=== PATIENT | male | born 2000 | race Caucasian/White ===

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

== ENCOUNTER 2021-09-19 12:19 | Emergency (ER) | payer BC, SELFPAY ==
[2021-09-19 12:29] VITALS: BP 152/80; PULSE 80; RESP 16; TEMP 37.2; O2SAT 100
--- NOTE | 2021-09-19 12:42 | ED.URI ---
HPI - URI/Sore Throat General Chief Complaint: Upper Respiratory Infection Stated Complaint: Sore Throat Time Seen by Provider: 09/19/21 12:42 Source: patient Mode of arrival: ambulatory Limitations: no limitations History of Present Illness HPI Narrative: 20 yo M presents with c/o sore and swollen throat, fatigue for approx. 2 wks. has had nausea for approx. 3 days. Was seen at ER 4 or 5 days ago and had neg covid test. Reports that he was not tested for strep. Deneis cough, congestion, headaches, fever. All systems reviewed and negative except as noted above. Related Data Allergies Allergy/AdvReac Type Severity Reaction Status Date / Time No Known Allergies Allergy Verified 09/19/21 12:22 Review of Systems Review of Systems: CONSTITUTIONAL: Denies fever, chills, or sweats. Reports fatigue. EYES: Denies visual changes, redness, or discharge. ENT: Denies rhinorrhea, congestion. Reports sore throat. CARDIOVASCULAR: Denies chest pain, palpitations, or edema. RESPIRATORY: Denies cough or dyspnea. GASTROINTESTINAL: Denies abdominal pain, nausea, vomiting, or diarrhea. GENITOURINARY: Denies dysuria or hematuria. SKIN: Denies rash or itching. MUSCULOSKELETAL: Denies back pain, joint pain, or myalgia. NEUROLOGIC: Denies headache, numbness, or weakness. PSYCHIATRIC: Denies anxiety or depression. All other systems reviewed are negative, except as documented in HPI. PMFSH Social History Social History Gender identity (if verbalized by the patient): Male Comments At time of signature, agree with nursing past medical, surgical, social and family history. There is no relevant family history pertinent to the presenting complaint. Exam Narrative: GENERAL: This is a well-nourished, well-developed patient, in no apparent distress. HEAD: normocephalic, atraumatic. EYES: PERRL. Sclera clear/white. Vision is grossly intact. EARS: External ears normal, auditory canals clear and without drainage, TMs normal without perforation. Hearing grossly intact. NOSE: External nose normal with no obvious nasal discharge, nares without redness, no rhinorrhea. THROAT: Mucous membranes moist, erythema and swelling to posterior pharynx. Erythema, tonsils 1+ bilaterally. No exudates. NECK: Neck supple, non-tender without lymphadenopathy, masses or thyromegaly. CARDIOVASCULAR: Regular rate and rhythm without murmurs, gallops, or rubs. RESPIRATORY: Clear to auscultation. Breath sounds equal bilaterally. No wheezes, rales, or rhonchi. SKIN: warm, Dry, intact with no suspicious lesions or rash, good texture and turgor. NEURO: awake, alert, and oriented to person, place and time. There were no obvious focal neurologic abnormalities. EXTREMITIES: No joint tenderness, effusion, or edema noted. Course Course Level of Care: Express Care Visit Vital Signs Vital signs: Vital Signs Temperature 37.2 C 09/19/21 12:29 Pulse Rate 80 09/19/21 12:29 Respiratory Rate 16 09/19/21 12:29 Blood Pressure 152/80 H 09/19/21 12:29 Pulse Oximetry 100 09/19/21 12:29 Oxygen Delivery Room Air 09/19/21 12:29 Temperature 37.2 C 09/19/21 12:29 Pulse Rate 80 09/19/21 12:29 Respiratory Rate 16 09/19/21 12:29 Blood Pressure 152/80 H 09/19/21 12:29 Pulse Oximetry 100 09/19/21 12:29 Oxygen Delivery Room Air 09/19/21 12:29 Reviewed MDM - URI/Sore Throat MDM Narrative Medical decision making narrative: Negative strep and mono. We will treat patient with antibiotic due to exam findings and symptom duration. Patient is aware of diagnosis, understands and agrees to treatment plan. Anticipatory guidance given. Patient agrees to follow-up as directed and is aware of reasons to seek care at the emergency department. Portions of this record may have been created with voice recognition software Differential Diagnosis Differential diagnosis: Likely upper respiratory infection, sinusitis, viral infection and pharyngitis Lab Data Labs:
== END 2021-09-19 13:17 | disposition home or self-care (01) ==
PROVIDERS: Emergency Provider Nurse Practitioner Family
DX: J02.9 Acute pharyngitis, unspecified (principal)
CPT/HCPCS: 36416; 86308; 87081; 87880; 99213; G0463

== ENCOUNTER 2021-11-06 15:36 | Emergency (ER) | payer BC, SELFPAY ==
--- NOTE | 2021-11-06 15:37 | ED.URI ---
HPI - URI/Sore Throat General Chief Complaint: Upper Respiratory Infection Stated Complaint: Sore Throat Time Seen by Provider: 11/06/21 15:58 Source: patient and RN notes reviewed Mode of arrival: ambulatory Limitations: no limitations History of Present Illness HPI Narrative: 21-year-old male presents with concern for sore throat, fever, cold chills that started 3 to 4 days ago. He reports history of strep throat. Reports he had tonsillitis 3 months ago for which he took amoxicillin. He denies nasal congestion, rhinorrhea, difficulty swallowing. Reports painful swallowing. He denies known sick exposures, reports he works at [employer] with public. MD elicited complaint: sore throat Related Data Allergies Allergy/AdvReac Type Severity Reaction Status Date / Time No Known Allergies Allergy Verified 09/19/21 12:22 Review of Systems Review of Systems: CONSTITUTIONAL: Reports malaise, chills, fever. EYES: Denies visual changes, redness, or discharge. ENT: Denies rhinorrhea, congestion, sinus pain, otalgia. Reports sore throat. CARDIOVASCULAR: Denies chest pain, palpitations, or edema. RESPIRATORY: Denies cough. Denies dyspnea. GASTROINTESTINAL: Denies abdominal pain, nausea, vomiting, diarrhea SKIN: Denies rash or itching. MUSCULOSKELETAL: Reports myalgia. NEUROLOGIC: Denies headache. All systems reviewed & are unremarkable except as noted in HPI and below PMFSH Social History Social History Gender identity (if verbalized by the patient): Male Comments At time of signature, agree with nursing past medical, surgical, social and family history. There is no relevant family history pertinent to the presenting complaint Exam Narrative: GENERAL: Well-appearing, well-nourished, and in no acute distress. HEAD: Normocephalic EYES: PERRLA, conjunctivae clear ENT: Nares clear. Mucous membranes moist. TM pearly vega with sharp light reflex bilaterally; no tragal tenderness. Oropharynx erythematous without lesions. Tonsils enlarged and without exudate, no drooling, no hoarseness, no trismus, uvula midline. NECK: Supple. No lymphadenopathy CHEST: Clear to auscultation, breath sounds equal. No wheezing, rhonchi, rales, or stridor. No respiratory distress, speaks in full sentences. HEART: Regular rate and rhythm. No murmur heard. SKIN: Warm, dry, no rash. NEURO: Alert and oriented x3. PSYCH: Normal mood and affect Course Course Emergency Course: Patient is aware of diagnosis, understands and agrees to treatment plan. Anticipatory guidance given. Patient agrees to follow-up as directed and is aware of reasons to seek care at the emergency department. Portions of this record may have been created with voice recognition software Level of Care: Express Care Visit Vital Signs Vital signs: Reviewed. MDM - URI/Sore Throat MDM Narrative Medical decision making narrative: Differential diagnosis considered: Sousa virus, strep pharyngitis, allergic rhinitis, upper respiratory tract infection, sinusitis, rhinosinusitis, nasopharyngitis. viral pharyngitis, otitis media, otitis externa, pneumonia, bronchitis, viral cough syndrome, viral syndrome, and influenza. Exam findings show no acute concerns or changes; patient is non-toxic appearing and is in no distress. Patient is appropriate for outpatient treatment and follow-up. Lab Data Attestation: I reviewed the patient's lab results. Critical Care Time Critical Care Time Critical Care Time: No Discharge Plan Discharge Clinical Impression: Acute streptococcal pharyngitis Patient Disposition: Home, Self-Care Condition: Stable Instructions: Antibiotic Form, Strep Throat (ED) Additional Instructions: -Take the medication as prescribed. Throw away the toothbrush after 24hours of antibiotic. -Eat and drink things that are easy to swallow, like tea or soup, or popsicles to suck on. -Oral rinses such as: Salt water gargles and/or may use topical anesthetic (eg. Chloraseptic spr
[2021-11-06 15:41] VITALS: BP 147/76; PULSE 103; RESP 16; TEMP 37.1; O2SAT 100
== END 2021-11-06 16:11 | disposition home or self-care (01) ==
PROVIDERS: Emergency Provider Nurse Practitioner
DX: J02.0 Streptococcal pharyngitis (principal)
CPT/HCPCS: 87880; 99213; G0463

== ENCOUNTER 2022-02-15 07:14 | Emergency (ER) | payer BC, SELFPAY ==
[2022-02-15 07:21] VITALS: BP 159/86; PULSE 105; RESP 16; TEMP 37.2; O2SAT 99
[2022-02-15 07:40] LABS: Basophils Percent Auto 0.4 % (0.2-1.2); Eosinophils Absolute Auto 0.1 K/mm3 (0-0.3); Eosinophils Percent Auto 0.6 % (0-4.4); Hematocrit 50.6 % (42.0-52.0); Hemoglobin 17.5 g/dL (14.0-18.0); Immature Granulocyte Absolute 0.01 K/mm3 (0.00-0.031); Immature Granulocyte Percent A 0.1 % (0-0.5); Lymphocytes Absolute Auto 2.53 K/mm3 (0.9-3.2); Lymphocytes Percent Auto 27.3 % (18.3-44.2); Mean Corpuscular HGB Conc 34.6 g/dl (32-36); Mean Corpuscular Hemoglobin 29.3 pg (26-34); Mean Corpuscular Volume 84.6 fl (80-100); Mean Platelet Volume 10.1 fl (7.4-10.4); Monocytes Absolute Auto 0.6 K/mm3 (0.1-0.6); Neutrophils Absolute Auto 6.1 K/mm3 (1.3-6.7); Neutrophils Percent Auto 65.6 % (45.5-73.1); Platelet Count Result 347 k/mm3 (150-375); Red Blood Count 5.98 M/mm3 (4.6-6.20); Red Cell Distribution Width 12.6 % (11.5-14.5); White Blood Count 9.3 K/mm3 (4.5-10.0)
[2022-02-15 08:15] LABS: Appearance Urine Clear (Clear); Bilirubin Urine Negative (Negative); Blood Urine Negative (Negative); Color Urine Yellow (Yellow); Glucose Urine UA Negative (Negative); Ketones Urine 2+ mg/dL (Negative); Leukocyte Esterase Ur Negative LEU/UL (Negative); Nitrate Urine Negative (Negative); Protein Urine Negative (Negative); Specific Grav Ur 1.025 (1.001-1.035); Urobilinogen Urine 0.2 mg/dL (<2.0)
[2022-02-15 08:22] LABS: Mucus Urine Rare /lpf; RBC Urine 0-2 /hpf (0-2); WBC Urine 0-3 /hpf
[2022-02-15 08:24] LABS: Add Urine Microscopic? YES
[2022-02-15 08:28] LABS: Alanine Aminotransferase 36 U/L (6-50); Albumin Level 5.3 g/dL (3.5-5.1); Alkaline Phosphatase 71 U/L (38-126); Anion Gap 11 mmol/L (8-16); Aspartate Amino Transferase 40 U/L (17-59); Bilirubin,Total 0.7 mg/dL (0.2-1.3); Blood Urea Nitrogen 14 mg/dL (9-20); Calcium 9.9 mg/dL (8.4-10.2); Carbon Dioxide 28 mmol/L (22-30); Chloride 101 mmol/L (98-107); Estimated CRCL calculation 188 ml/min; Estimated Glomerular Filt Rate > 60; Glucose 121 mg/dL (65-110); Lipase 49 U/L (23-300); Potassium 3.8 mmol/L (3.4-5.0); Sodium 140 mmol/L (137-145)
--- NOTE | 2022-02-15 08:55 | ED.GENADULT ---
HPI - General Adult General Chief complaint: Abdominal Pain Stated complaint: left side abdominal pain x 4 days Time Seen by Provider: 02/15/22 07:26 History of Present Illness HPI narrative: 21-year-old male presents for evaluation of sharp, intermittent, left side pain x1 week. He has been taking ibuprofen 400 mg every now and then to treat the pain. No falls or trauma. No fever, bowel or bladder changes. He is otherwise healthy. No difficulty breathing or chest pain. Related Data Allergies Allergy/AdvReac Type Severity Reaction Status Date / Time No Known Allergies Allergy Verified 09/19/21 12:22 Review of Systems Review of Systems: CONSTITUTIONAL: Denies fever, chills, or sweats. EYES: Denies visual changes, redness, or discharge. ENT: Denies rhinorrhea, congestion, sore throat, or otalgia. CARDIOVASCULAR: Denies chest pain, palpitations, or edema. RESPIRATORY: Denies cough or dyspnea. GASTROINTESTINAL: Denies abdominal pain, nausea, vomiting, or diarrhea. GENITOURINARY: Denies dysuria or hematuria. SKIN: Denies rash or itching. MUSCULOSKELETAL: Denies back pain, joint pain, or myalgia. NEUROLOGIC: Denies headache, numbness, or weakness. PSYCHIATRIC: Denies anxiety or depression. PMFSH Social History Social History Gender identity (if verbalized by the patient): Male Exam Narrative: GENERAL: Well-appearing, well-nourished, and in no acute distress. HEAD: Normocephalic, atraumatic. EYES: PERRLA and EOMI. ENT: Nares clear, no rhinorrhea or epistaxis. Mucous membranes moist. NECK: Supple. CHEST: Clear to auscultation. No respiratory distress. HEART: Regular rate and rhythm. No murmur heard. Normal peripheral pulses. ABDOMEN: Soft, nontender, nondistended, normal active bowel sounds. EXTREMITIES: Normal range of motion. No edema. SKIN: Warm, dry, no rash. NEURO: No focal deficits. Alert and oriented x3. PSYCH: Normal mood and affect. Course Vital Signs Vital signs: Vital Signs Temperature 98.9 F 02/15/22 07:21 Pulse Rate 105 H 02/15/22 07:21 Respiratory Rate 16 02/15/22 07:21 Blood Pressure 159/86 H 02/15/22 07:21 Pulse Oximetry 99 02/15/22 07:21 Oxygen Delivery Room Air 02/15/22 07:21 Temperature 98.9 F 02/15/22 07:21 Pulse Rate 105 H 02/15/22 07:21 Respiratory Rate 16 02/15/22 07:21 Blood Pressure 159/86 H 02/15/22 07:21 Pulse Oximetry 99 02/15/22 07:21 Oxygen Delivery Room Air 02/15/22 07:21 Medical Decision Making MDM Narrative Medical decision making narrative: Labs are unremarkable as ordered in triage. Suspect constipation versus diaphragm spasm. Normal physical exam. I do not suspect an acute medical emergency which would require intervention at this time. Will give primary care follow-up. Vital Signs Vital Signs: Vital Signs Temperature 98.9 F 02/15/22 07:21 Pulse Rate 105 H 02/15/22 07:21 Respiratory Rate 16 02/15/22 07:21 Blood Pressure 159/86 H 02/15/22 07:21 Pulse Oximetry 99 02/15/22 07:21 Oxygen Delivery Room Air 02/15/22 07:21 Temperature 98.9 F 02/15/22 07:21 Pulse Rate 105 H 02/15/22 07:21 Respiratory Rate 16 02/15/22 07:21 Blood Pressure 159/86 H 02/15/22 07:21 Pulse Oximetry 99 02/15/22 07:21 Oxygen Delivery Room Air 02/15/22 07:21 Lab Data Result diagrams: 02/15/22 07:36 02/15/22 07:36 Labs: Lab Results 02/15/22 02/15/22 02/15/22 Range/Units 07:36 07:36 08:01 WBC 9.3 (4.5-10.0) K/mm3 RBC 5.98 (4.6-6.20) M/mm3 Hgb 17.5 (14.0-18.0) g/dL Hct 50.6 (42.0-52.0) % MCV 84.6 (80-100) fl MCH 29.3 (26-34) pg MCHC 34.6 (32-36) g/dl RDW 12.6 (11.5-14.5) % Plt Count 347 (150-375) k/mm3 MPV 10.1 (7.4-10.4) fl Immature Gran % (Auto) 0.1 (0-0.5) % Neut % (Auto) 65.6 (45.5-73.1) % Lymph % (Auto) 27.3 (18.3-44.2) % Forest % (Auto) 6.0 (2.6-8.5) % Eos % (Auto) 0.6 (0-4.4) % Baso % (A
== END 2022-02-15 09:19 | disposition home or self-care (01) ==
PROVIDERS: Emergency Provider Emergency Medicine
DX: R10.9 Unspecified abdominal pain (principal)
CPT/HCPCS: 36415; 80053; 81001; 83690; 85025; 99283

== ENCOUNTER 2024-01-19 08:08 | Emergency (ER) | payer OTHER, BC, SELFPAY ==
[2024-01-19 08:25] VITALS: BP 153/79; PULSE 102; RESP 16; TEMP 37.2; O2SAT 99
--- NOTE | 2024-01-19 08:43 | ED_ITS ---
HPI - URI/Sore Throat General Chief Complaint: Upper Respiratory Infection Stated Complaint: fever,cough Time Seen by Provider: 01/19/24 08:30 Source: patient and RN notes reviewed Mode of arrival: ambulatory Limitations: no limitations History of Present Illness HPI Narrative: Patient presents today with a 2 week history of productive cough, congestion, rhinorrhea. Two days ago he developed a subjective fever. He has tried DayQuil and Mucinex without much relief. No history of asthma. He is a nonsmoker. Related Data Allergies Allergy/AdvReac Type Severity Reaction Status Date / Time No Known Allergies Allergy Verified 01/19/24 08:11 Review of Systems Review of Systems: CONSTITUTIONAL: Denies body aches, chills, or sweats.+ subjective fever EYES: Denies visual changes, redness, or discharge. ENT: Denies sore throat, or otalgia.+ rhinorrhea, congestion CARDIOVASCULAR: Denies chest pain, palpitations, or edema. RESPIRATORY: Denies dyspnea.+ cough GASTROINTESTINAL: Denies abdominal pain, nausea, vomiting, or diarrhea. GENITOURINARY: Denies dysuria or hematuria. SKIN: Denies rash, itching, or wounds. MUSCULOSKELETAL: Denies back pain, joint pain, or myalgia. NEUROLOGIC: Denies headache, numbness, tingling, or weakness. PSYCH: Denies depression or anxiety. [facility] Social History Social History Gender identity (if verbalized by the patient): Male Comments At time of signature, I have reviewed and agree with nursing past medical, surgical, social and family history unless otherwise noted. Please see nursing chart for further information. There is no relevant family history pertinent to the presenting complaint Exam Narrative: GENERAL: Well-appearing, well-nourished, and in no acute distress. HEAD: Normocephalic, atraumatic. EYES: EOMI. No redness or drainage. Conjunctivae normal. ENT: Mucous membranes pink and moist. Nares congested. No rhinorrhea. TMs normal bilaterally. Throat normal. Uvula midline. NECK: Normal AROM. Supple. No lymphadenopathy. CHEST: No respiratory distress. Clear to auscultation. HEART: Regular rate and rhythm. No murmur appreciated. EXTREMITIES: Normal range of motion. No edema. SKIN: Warm, dry, no rash. Capillary refill normal. Normal skin turgor. NEURO: No focal deficits. Alert and oriented x3. Gait steady. PSYCH: Normal affect. No signs of depression or anxiety. Course Course Level of Care: Express Care Visit Vital Signs Vital signs: Vital Signs Temperature 99.0 F 01/19/24 08:25 Pulse Rate 102 H 01/19/24 08:25 Respiratory Rate 16 01/19/24 08:25 Blood Pressure 153/79 H 01/19/24 08:25 Pulse Oximetry 99 01/19/24 08:25 Oxygen Delivery Room Air 01/19/24 08:25 Temperature 99.0 F 01/19/24 08:25 Pulse Rate 102 H 01/19/24 08:25 Respiratory Rate 16 01/19/24 08:25 Blood Pressure 153/79 H 01/19/24 08:25 Pulse Oximetry 99 01/19/24 08:25 Oxygen Delivery Room Air 01/19/24 08:25 Reviewed MDM - URI/Sore Throat MDM Narrative Medical decision making narrative: Patient will be treated with Augmentin and prednisone for sinusitis and bronchitis. Also prescription for Tessalon Perles for cough. Anticipatory guidance given. Differential Diagnosis Differential diagnosis: Likely upper respiratory infection, sinusitis, viral infection, bronchitis and other (Pneumonia) Critical Care Time Critical Care Time Critical Care Time: No Discharge Plan Discharge Clinical Impression: Bronchitis Sinusitis Qualifiers: Sinusitis location: unspecified location Chronicity: acute Recurrence: non- recurrent Qualified Code(s): J01.90 - Acute sinusitis, unspecified Patient Disposition: Home, Self-Care Condition: Stable Instructions: Antibiotic Form, Sinusitis (ED), Acute Bronchitis (ED) Additional Instructions: Please take all medications as prescribed. Rest and stay hydrated. Follow-up with your PCP next week if symptoms are not improving. Go to the ER immediately if symptoms worsen to include shortness of breath, chest pain. Your blood pressure was elevated above 120/80 today at Urgent Care. This puts you above the threshold for follow up. Please schedule a followup visit with your personal physician as soon as possible, for further evaluation and treatment. Even blood pressure exceeding 120/80 may indicate pre-hypertension. Prescriptions: New benzonatate 200 mg capsule 200 mg PO TID PRN (Reason: cough) Qty: 20 0RF prednisone 50 mg tablet 50 mg PO DAILY 5 Days Qty: 5 0RF amoxicillin-pot clavulanate 875-125 mg tablet 1 tablet PO Q12H 7 Days Qty: 14 0RF Follow-up/Referrals: PHYSICIAN,NUCLE[employer]ICINE PET CT TECHNOLOGIST [Primary Care Provider] - Stand Alone Forms: Work/School Release IP Time of Disposition: 08:47
== END 2024-01-19 08:51 | disposition home or self-care (01) ==
PROVIDERS: Emergency Provider Nurse Practitioner
DX: J40 Bronchitis, not specified as acute or chronic (principal); J01.90 Acute sinusitis, unspecified
CPT/HCPCS: 99213; G0463

== ENCOUNTER 2024-09-13 14:55 | Emergency (ER) | payer BC, OTHER, SELFPAY ==
--- NOTE | 2024-09-13 15:04 | ED_ITS ---
HPI - Skin/Abscess/Foreign Bdy General Chief complaint: Skin/Abscess/Foreign Body Stated complaint: Rash Time Seen by Provider: 09/13/24 14:58 Source: patient Mode of arrival: ambulatory Limitations: no limitations History of Present Illness HPI narrative: Patient is a 23 year old male who presents to the clinic for a itchy rash to his right arm and back of his neck x 1 week. Patient has been using Aquaphor. He s tates he has had a similar rash on his arm a couple months back that resolved and now is back. Denies any use of new products. Denies any shortness of breath, fevers, nausea, or vomiting. Related Data Allergies Allergy/AdvReac Type Severity Reaction Status Date / Time No Known Allergies Allergy Verified 09/13/24 14:57 Review of Systems Review of Systems: CONSTITUTIONAL: Denies body aches, fever, chills, or sweats. EYES: Denies visual changes, redness, or discharge. ENT: Denies rhinorrhea, congestion CARDIOVASCULAR: Denies chest pain, palpitations, or edema. RESPIRATORY: Denies cough or dyspnea. GASTROINTESTINAL: Denies abdominal pain, nausea, vomiting, or diarrhea. SKIN: ?Reports a rash to his right arm and back of the neck. MUSCULOSKELETAL: Denies back pain, joint pain, or myalgia. NEUROLOGIC: Denies headache, numbness, tingling, or weakness. All systems reviewed & are unremarkable except as noted in HPI and below PMFSH Social History Social History Gender identity (if verbalized by the patient): Male Comments At time of signature, I have reviewed and agree with nursing past medical, surgical, social and family history unless otherwise noted. Please see nursing chart for further information. There is no relevant family history pertinent to the presenting complaint. Exam Narrative: GENERAL: Well-appearing HEAD: Normocephalic, atraumatic. EYES: ?conjunctivae clear, and EOMI. ENT: Mucous membranes moist. Oropharynx without edema, erythema or lesions. NECK: Supple. No lymphadenopathy CHEST: Clear to auscultation. HEART: Regular rate and rhythm. SKIN: Warm, dry. ?3cm Erythemic papules rash noted right forearm. 1cm erythemic papules rash noted to back of neck. No pain. No induration. NEURO: ?Alert and oriented x3.? Course Course Level of Care: Express Care Visit Vital Signs Vital signs: Reviewed MDM - Skin/Abscess/Foreign Bdy MDM Narrative Medical decision making narrative: Discussed physical exam findings. Triamcinolone cream prescription given. Advised supportive measures and signs/symptoms to go to the ER. Pt is appropr iate for outpatient treatment and follow up. Differential Diagnosis Differential diagnosis: Likely cellulitis, eczema and contact dermatitis Critical Care Time Critical Care Time Critical Care Time: No Discharge Plan Discharge Clinical Impression: Eczema Qualifiers: Eczema type: unspecified Qualified Code(s): L30.9 - Dermatitis, unspecified Patient Disposition: Home Condition: Stable Instructions: Eczema (ED) Additional Instructions: Use triamcinolone cream as prescribed. Avoid hot showers, Take cool showers. Wash the area with gentle soap and water only. Use skin cream as prescribed to reduce itchiness Avoid scratching when possible to prevent worsening of the condition and disruption of the skin that could lead to bacterial infection To relieve itching, place a cool washcloth or some ice over the area that itches, rather than scratching Follow up with primary care provider Seek the Emergency Room if you have trouble breathing, become hoarse, or start wheezing, develop belly cramps, vomiting or feel dizzy. Patient Language: Portuguese Prescriptions: New triamcinolone acetonide 0.1 % cream 1 applic topical BID Qty: 30 0RF Follow-up/Referrals: PHYSICIAN,CLAIMS COORDINATOR [Primary Care Provider] - Stand Alone Forms: Work/School Release IP Time of Disposition: 15:14
[2024-09-13 15:05] VITALS: BP 158/96; PULSE 76; RESP 14; TEMP 36.5; O2SAT 100
== END 2024-09-13 15:21 | disposition home or self-care (01) ==
DX: L30.9 Dermatitis, unspecified (principal)
CPT/HCPCS: 99213; G0463